=== PATIENT | male | born 1960 | race Caucasian/White ===

== ENCOUNTER 2018-10-03 10:05 | Emergency (ER) | payer BC, OTHER ==
[2018-10-03 10:23] VITALS: BP 153/105
--- NOTE | 2018-10-03 11:18 | EDM.PDOC ---
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 below) (has tried limiting foods to see if that helps with limited success) Lower Abdomen Pain Score (Numeric/FACES): 2 - Related Data Allergies Allergy/AdvReac Type Severity Reaction Status Date / Time No Known Allergies Allergy Verified 10/03/18 10:23 Home Meds: Home Meds Allopurinol [Zyloprim] 100 mg PO DAILY 03/16/15 [History] atorvaSTATin [Lipitor] 1 tab PO DAILY 03/16/15 [History] Past Medical History HEENT History: Reports: Impaired Vision Cardiovascular History: Reports: High Cholesterol Musculoskeletal History: Reports: Fracture, Gout Other Musculoskeletal History: Fx femur - Infectious Disease History Infectious Disease History: Reports: Chicken Pox, Measles, Mumps - Past Surgical History HEENT Surgical History: Reports: Cataract Surgery GI Surgical History: Reports: Colonoscopy Other Neurological Surgeries/Procedures: L5 surgery, for fragment removal. Musculoskeletal Surgical History: Reports: Other (See Below) Other Musculoskeletal Surgeries/Procedures:: back surgery Social & Family History - Tobacco Use Smoking Status *Q: Never Smoker Second Hand Smoke Exposure: No - Caffeine Use Caffeine Use: Reports: Soda - Alcohol Use Days Per Week of Alcohol Use: 2 Number of Drinks Per Day: 2 Total Drinks Per Week: 4 - Recreational Drug Use Recreational Drug Use: No ED ROS GENERAL - Review of Systems Review Of Systems: See Below Constitutional: Reports: No Symptoms HEENT: Reports: No Symptoms Respiratory: Reports: No Symptoms Cardiovascular: Reports: No Symptoms GI/Abdominal: Reports: Abdominal Pain, Diarrhea (has 5-7 stools per day with urgency with each. Denies changes to eating patterns, denies recent binge- drinking experience, denies recent exposure to community meal and no recent travel. He does share that he and his have begun drinking the well water at their cabin where previously they had only drank bottled water when visiting. His has not been ill with diarrhea or GI issues. Denies recent exposures to anyone ill or a recent experience with cough/cold/flu. Denies nausea and vomiting. ) : Reports: Other (denies changes to urination, urgency or frequency. ) ED EXAM, GI/ABD - Physical Exam Exam: See Below Exam Limited By: No Limitations General Appearance: Alert, WD/WN, No Apparent Distress Ears: Hearing Grossly Normal GI/Abdominal Exam: Other (Diffuse abdominal tenderness, hyperactive bowel sounds. Negative findings for enlarged liver or spleen upon palpation. ) Course - Vital Signs Last Recorded V/S: Last Vital Signs Temp 35.3 C 10/03/18 10:33 Pulse 76 10/03/18 10:33 Resp 16 10/03/18 10:33 BP 153/105 H 10/03/18 10:33 Pulse Ox 97 10/03/18 10:33 - Orders/Labs/Meds Orders: Active Orders 24 hr Category Date Time Status CLOSTRIDIUM DIFFICILE BY PCR [] Stat Lab 10/03/18 11:12 Ordered CULTURE STOOL + SHIGATOX [] Stat Lab 10/03/18 11:15 Ordered Lactated Ringers [Ringers, Lactated] 1,000 ml Med 10/03/18 12:15 Ordered IV ASDIRECTED Medication Orders Lactated Ringer's (Ringers, Lactated) 1,000 mls @ 999 mls/hr IV ASDIRECTED SINDY Last Admin: 10/03/18 13:14 Dose: 999 mls/hr Labs: Laboratory Tests 10/03/18 10/03/18 Range/Units 11:26 11:26 WBC 7.7 (4.5-11.0) K/uL RBC 5.30 (4.30-5.90) M/uL Hgb 16.1 H (12.0-15.0) g/dL Hct 48.0 (40.0-54.0) % MCV 91 (80-98) fL MCH 30 (27-31) pg MCHC 34 (32-36) % Plt Count 152 (150-400) K/uL Neut % (Auto) 63 (36-66) % Lymph % (Auto) 21 L (24-44) % [place] % (Auto) 13 H (2-6) % Eos % (Auto) 2 (2-4) % Baso % (Auto) 1 (0-1) % Sodium 137 L (140-148) mmol/L Potassium 4.6 (3.6-5.2) mmol/L Chloride 102 (100-108) mmol/L Carbon Dioxide 27 (21-32) mmol/L Anion Gap 12.6 (5.0-14.0) mmol/L BUN 21 H (7-18) mg/dL Creatinine 1.3 (0.8-1.3) mg/dL Est Cr Clr Drug Dosing 74.19 mL/min Estimated GFR (MDRD) 56 L (>60) Glucose 108 H (74-106) mg/dL Calcium 9.4 (8.5-10.1) mg/dL Total Bilirubin 0.7 (0.2-1.0) mg/dL AST 48 H (15-37) U/L ALT 92 H (12-78) U/L Alkaline Phosphatase 101 (46-116) U/L C-Reactive Protein 1.38 H (0.0-0.3) mg/dL Total Protein 7.4 (6.4-8.2) g/dL Albumin 3.6 (3.4-5.0) g/dL Globulin 3.8 H (2.3-3.5) g/dL Albumin/Globulin Ratio 1.0 L (1.2-2.2) Meds: Medications Generic Name Dose Route Start Last Admin Trade Name Freq PRN Reason Stop Dose Admin Lactated Ringer's 1,000 mls @ 999 mls/hr 10/03/18 12:15 10/03/18 13:14 Ringers, Lactated IV 999 mls/hr ASDIRECTED SINDY Administration Discontinued Medications Generic Name Dose Route Start Last Admin Trade Name Freq PRN Reason Stop Dose Admin Lactated Ringer's 1,000 mls @ 999 mls/hr 10/03/18 12:00 10/03/18 12:05 Ringers, Lactated IV 10/03/18 13:00 999 mls/hr BOLUS ONE Administration - Re-Assessments/Exams Free Text/Narrative Re-Assessment/Exam: 10/03/18 11:28 labs ordered stool specimen will be obtained. Departure - Departure Time of Disposition: 14:25 Disposition: Home, Self-Care 01 Clinical Impression: Diarrhea - Discharge Information *PRESCRIPTION DRUG MONITORING PROGRAM REVIEWED*: No *COPY OF PRESCRIPTION DRUG MONITORING REPORT IN PATIENT MALCOM: No Instructions: Diarrhea, Adult Referrals: PCP,None [Primary Care Provider] - Forms: ED Department Discharge Additional Instructions: Discussed use of OTC imodium 2 tabs after each loose bowel movement for three to four days. If not improving, seek PCP guidance. Change diet to rice, yogurt and use of probiotic. Avoid dairy and caffeine for next week. - My Orders Last 24 Hours: My Active Orders 10/03/18 11:12 CLOSTRIDIUM DIFFICILE BY PCR [RM] Stat 10/03/18 11:15 CULTURE STOOL + SHIGATOX [RM] Stat 10/03/18 12:15 Lactated Ringers [Ringers, Lactated] 1,000 ml IV ASDIRECTED - Assessment/Plan Last 24 Hours: My Active Orders 10/03/18 11:12 CLOSTRIDIUM DIFFICILE BY PCR [RM] Stat 10/03/18 11:15 CULTURE STOOL + SHIGATOX [RM] Stat 10/03/18 12:15 Lactated Ringers [Ringers, Lactated] 1,000 ml IV ASDIRECTED
[2018-10-03] MEDS ORDERED: Lactated Ringers 1,000 ML IV ONE (12:00)
[2018-10-03] MEDS ORDERED: Lactated Ringers 1,000 ML IV SCH (12:15)
== END 2018-10-03 14:38 | disposition home or self-care (01) ==
LOC: JP.ED 10:05
DX: R19.7 Diarrhea, unspecified (principal); E78.00 Pure hypercholesterolemia, unspecified; Z79.899 Other long term (current) drug therapy
CPT/HCPCS: 36415; 80053; 85025; 86140; 87046; 87177; 87209; 87493; 87899; 96360; 96361; 99284; J7120